=== PATIENT | female | born 1945 | race Caucasian/White ===

== ENCOUNTER 2019-01-18 08:42 | Day surgery (SDC) | payer MEDICARE, BC ==
[~2019-01-18 08:42] MED LIST: CEFAZOLIN 2 Gram 2 GM/50 ML BAG IVPB ONE; CELECOXIB 100 MG CAPSULE PO ONE; FAMOTIDINE 20MG TABLET PO ONE; MECLIZINE 25 MG TABLET PO ONE; METOCLOPRAMIDE 10 MG TABLET PO ONE; VANCOMYCIN 1GM/200ML PREMIX 1 GM/200 ML PIGGYBACK IVPB ONE
[2019-01-18] MEDS ORDERED: PROPOFOL 10 MG/ML VIAL IV ONE (08:43)
[2019-01-18] MEDS ORDERED: SEVOFLURANE 250 ML INH ONE (08:43)
[2019-01-18] MEDS ORDERED: ONDANSETRON HCL IV 4 MG/2 ML VIAL IVP ONE (08:43)
[2019-01-18] MEDS ORDERED: MIDAZOLAM HCL 2MG/2ML VIAL IV ONE (08:43)
[2019-01-18] MEDS ORDERED: ROPIVACAINE HCL (NAROPIN) /PF 5MG/ML 20ML VIAL IV ONE (08:43)
[2019-01-18] MEDS ORDERED: LIDOCAINE 2% MDV (20MG/ML) 20ML VIAL IV ONE (08:43)
[2019-01-18] MEDS ORDERED: EPHEDRINE SULFATE 50 MG/ML ML IV ONE (08:43)
[2019-01-18] MEDS ORDERED: KETOROLAC 30 MG/ML VIAL IVP ONE (08:43)
[2019-01-18] MEDS ORDERED: DEXAMETHASONE 4 MG/ML 1ML VIAL IVP ONE (08:43)
[2019-01-18] MEDS ORDERED: HYDROMORPHONE HCL 2 MG/ML VIAL IV ONE (08:43)
[2019-01-18] MEDS ORDERED: FENTANYL PF 100MCG/2ML VIAL IV ONE (08:43)
[2019-01-18 09:34] LABS: ABO GROUP O; ANTIBODY SCREEN NEGATIVE (NEGATIVE); RH TYPE POSITIVE
[2019-01-18] MEDS ORDERED: RINGERS SOLUTION,LACTATED 1,000 ML IV ONE ×2 (09:57→11:49)
[2019-01-18] MEDS ORDERED: BUPIVACAINE 0.5% W/EPI MPF 30 ML VIAL IU ONE (11:48)
[2019-01-18] MEDS ORDERED: TRANEXAMIC ACID 1,000 MG/10 ML ML IU ONE (11:49)
[2019-01-18] MEDS ORDERED: TRANEXAMIC ACID 1,000 MG/10 ML ML IV ONE (11:49)
[2019-01-18] MEDS ORDERED: ZOLPIDEM TARTRATE 5 MG TABLET PO PRN (12:56)
[2019-01-18] MEDS ORDERED: ACETAMINOPHEN W/ CODEINE 300MG/60MG TABLET PO PRN (12:56)
[2019-01-18] MEDS ORDERED: HYDROCODONE/APAP 10/325 TABLET PO PRN ×2 (12:56)
[2019-01-18] MEDS ORDERED: KETOROLAC 30 MG/ML VIAL IVP PRN (12:56)
[2019-01-18] MEDS ORDERED: BISACODYL 10 MG SUPP RC PRN (12:56)
[2019-01-18] MEDS ORDERED: MAGNESIUM HYDROXIDE 30 ML UDC PO PRN (12:56)
[2019-01-18] MEDS ORDERED: AL HYDROX/MAG HYDROX 30ML UD PO PRN (12:56)
[2019-01-18] MEDS ORDERED: NALOXONE 0.4 MG/1 ML VIAL IVP PRN (12:56)
[2019-01-18] MEDS ORDERED: TRAMADOL HCL 50 MG TABLET PO PRN (12:56)
[2019-01-18] MEDS ORDERED: ACETAMINOPHEN 325 MG TAB PO PRN (12:56)
[2019-01-18] MEDS ORDERED: DIPHENHYDRAMINE HCL 25 MG CAPSULE PO PRN (12:56)
[2019-01-18] MEDS ORDERED: ONDANSETRON HCL IV 4 MG/2 ML VIAL IVP PRN (12:56)
[2019-01-18] MEDS ORDERED: HYDROMORPHONE HCL 2 MG/ML VIAL IM PRN (12:56)
[2019-01-18] MEDS ORDERED: FAMOTIDINE 20MG TABLET PO PRN (13:52)
[2019-01-18] MEDS ORDERED: LOPERAMIDE 2 MG CAPSULE PO PRN (13:53)
--- NOTE | 2019-01-18 16:26 | Rehab Evaluation ---
Patient Information - Patient Information Diagnosis: R knee DJD Ordered Treatment: PT Evaluate and Treat Status: Initial Evaluation Surgery: Yes (R TKA) Date of Surgery: 01/18/19 Past Medical/Surgical Hx: PAST MEDICAL/SURGICAL HISTORY Surgery to Affected Area? No Recent Surgery? Past Surgical History JONE 2002 HYST CYSTOCELE RECTOCELE BILAT BREAST BX'S TARSAL TUNNEL LEFT ANKLE C SCOPES PMH - Respiratory Hx Respiratory Disorders Yes Hx Asthma Yes: POSSIBLY Hx Bronchitis Yes: HX OF Hx Pneumonia Yes: HX OF PMH - Cardiovascular Hx Cardiovascular Disorders Yes Hx Vascular Disease Yes: CAROTIDS 30 PERCENT BLOCKAGE Exercise Tolerance Fair Hx of Migraines Yes: CONTROLLED WITH MEDS PMH - Neuro Hx Neurological Disorders Yes Hx Dizziness Yes: VERTIGO ON DAILY ANTIVERT PMH - GI Hx Gastrointestinal Disorders Yes Hx Gastroesophageal Reflux Yes: CONTROLLED WITH MEDS Hx Hiatal Hernia Yes Hx Irritable Bowel Yes Hx Ulcer Yes: HX OF Comment: DIARRHEA AT TIMES PMH - Hx Genitourinary Disorders Yes Hx Bladder Problem Yes: INCONTINENCE WEARS PADS DURING THE DAY AND DEPENDS AT NIGHT PMH - Endocrine Hx Endocrine Disorders Yes Hx Thyroid Disease Yes: POSSIBLY ON NO MEDS PMH - Musculoskeletal Hx Musculoskeletal Disorders Yes Hx Arthritis Yes: KNEES AND SPINE Hx Osteoporosis Yes PMH - Psych Hx Psychiatric Problems No PMH - Hematology/Oncology Hx Hematology/Oncology Yes Disorders Hx Bruising Yes: BRUISES EASILY Premorbid Status: Detail (The patient was independent with all mobility prior to surgery.) Social History: Detail (The patient lives with spouse in a two story house with 6 steps at the enterance and one handrail. The patient's bed room and bath room are on the main floor. The bathroom is equipped with the following: walk in shower, hand held shower, standard height toilet with a riser seat with railings . The patient's family is to acquire a walker and the patient has a single point cane.) Precautions: [place], Fall, Other (WBAT on the R LE.) - Time With Patient Total Time Spent With Patient (Min): 30 Treatment Procedures: Detail (Initial Evaluation, gait training) Subjective Information - Subjective Information Per Patient (The patient complained of lightheadness when standing which she reported is usual for her. The patient also complained of nausea after PT session. Nursing staff was notified. The patient complained of posterior, medial R knee pain but did not rate her pain using the 0-10 pain scale.) Objective Data - Mental Status Patient Orientation: Oriented x3 - Visual Perception Appears within normal limits for therapeutic activities - ROM Not within normal limits (The patient's R knee AROM is limited as to be expected following sugery. All other LE AROM is WNL,) - Strength/Tone Not within normal limits (The patient's LE strength was not tested s/p surgery however was functional.) - Bed Mobility Independent (The patient was independent with supine to and from sit transfer and scooting up in bed.) - Transfers Independent (The patient is independent with sit to and from stand transfer.) - Balance Balance Sitting: Good Balance Standing: Good - Gait Detail (The patient ambulated with front wheeled walker WBAT on the R LE with supervision for safety only a distance of 80 feet x 1.) Therapy Assessment - Therapy Assessment Detail (The patient was independent with bed mobility, transfers and required supervision for safety only with ambulation. Anticipate the patient will complete PT goals in one to two PT sessions.) Problem List - Problem List Physical Therapy Problem List: Detail (Decreased R knee AROM and decreased R LE strength) Goals - Goals Physical Therapy Goals: 1) The patient will be independent with TKA HEP. 2) The patient will ambulate on stairs using proper technique with supervision for safety. 3) The patient will ambulate household distance with appropriate assistive device independently Prognosis - Prognosis Good Plan - Plan Physical Therapy Plan: PT 1-2 sessions for gait training on levels and stairs and instruction in HEP.
[2019-01-18] MEDS: ACETAMINOPHEN W/ CODEINE 300MG/60MG TABLET PO PRN (16:40)
[2019-01-18] MEDS ORDERED: RIVAROXABAN 10 MG TABLET PO SCH (19:00)
[2019-01-18] MEDS: POTASSIUM CHLORIDE/D5-0.9%NACL 20 MEQ/1,000 ML BAG IV SCH (19:49)
[2019-01-18] MEDS: CEFAZOLIN 2 Gram 2 GM/50 ML BAG IVPB SCH (19:49)
[2019-01-18] MEDS: DOCUSATE SODIUM 100 MG CAPSULE PO SCH (21:24)
[2019-01-18] MEDS: MECLIZINE 25 MG TABLET PO SCH (21:25)
[2019-01-19] MEDS: CEFAZOLIN 2 Gram 2 GM/50 ML BAG IVPB SCH ×2 (03:32→11:55)
[2019-01-19] MEDS: POTASSIUM CHLORIDE/D5-0.9%NACL 20 MEQ/1,000 ML BAG IV SCH ×2 (03:36→06:27)
[2019-01-19 06:40] LABS: HEMATOCRIT 36.9 % (35.0-47.0); HEMOGLOBIN 11.6 gm/dl (11.6-16.0)
[2019-01-19 06:51] LABS: BLOOD UREA NITROGEN 11 mg/dL (8-23); CREATININE 0.5 mg/dL (0.5-0.9); EST GLOMERULAR FILTRATION RATE > 60 mL/min; GLUCOSE,RANDOM 141 mg/dL (74-109)
[2019-01-19] MEDS: ACETAMINOPHEN W/ CODEINE 300MG/60MG TABLET PO PRN ×3 (07:12→14:07)
--- NOTE | 2019-01-19 08:00 | Operative Note ---
DATE OF SURGERY: 01/18/2019 PREOPERATIVE DIAGNOSIS: Profound end-stage arthritis of the right knee. POSTOPERATIVE DIAGNOSIS: Profound end-stage arthritis of the right knee. OPERATION: Cemented right total knee arthroplasty using Hale and Nephew components with a size 5 cobalt chrome Legion femoral component, a size 4 stemmed tibia baseplate, a 9 mm lipped tibial insert, and a 32 mm all-plastic patella. STAFF SURGEON: Kenneth Saldivar MD ANESTHESIA: Spinal. PREPARATION: Chloraprep. INDIVIDUAL CONSIDERATIONS: This lady was morbidly obese with a body mass index approaching 50. This made exposure and closure much more difficult. PROCEDURE: The patient was taken to the operating room, placed supine on the operating room table. She had a successful induction of a spinal anesthetic. The right lower extremity was prepped and draped in the usual fashion. The patient had a midline approach to the knee. The limb was elevated and tourniquet was inflated to 300 mmHg. Sharp dissection carried down through skin and subcutaneous tissue. Small veins were coagulated with a Bovie. A medial arthrotomy was performed. The patella was everted and the knee was flexed. The patient had exposed bone in the medial and patellofemoral compartments with bone loss medially. Fat pad was resected, ACL was sacrificed, and provisional anterior meniscectomies were performed. The capsule was released from the medial proximal tibia. The initial femoral ecological modeler hole was then made freehand. The intramedullary femoral cutting jig was placed. It was cut in 7.0 degrees of valgus and adjusted for rotation and secured with pins for a 10 mm resection. The initial transverse cut was then made. The skin guide was placed in 3 degrees of external rotation. The ecological modeler holes were impacted. It was found that a size 5 would be appropriate. The anterior and posterior cuts followed by chamfer cuts were made. Osteophytes removed, and a size 5 trial was placed and found to fit well. The tibia was brought forward, and the remainder of the meniscal remnants removed with a Bovie. The extraarticular tibial cutting jig was placed. It was cut in neutral with a 3-degree AP slope. It was set for a 9 mm resection keyed off the high lateral side and secured with pins. When cutting the tibia, care was taken to preserve the PCL insertion on the tibia. After removing large medial osteophytes, I could fit a size 4. It was adjusted for rotation and secured with pins. With a 9 mm trial and femoral trial, there was excellent motion and stability. Ligamentous balance and rotation alignment were thought to be normal. Femoral ecological modeler holes were impacted and tri-flange tibial keel stamp was impacted, and these trial components were removed. The tourniquet was let down briefly to get bleeders posteriorly and then placed back up again. The patient had a thick patella and roughly 9 mm of bone was removed and it was cut freehand. After removing osteophytes, I could fit a size 32, and the 3 ecological modeler holes were drilled. The knee was then thoroughly irrigated out with pulsatile Betadine and saline to remove any visual or palpable debris. Bony surfaces were dried with a CarboJet. A size 4 stemmed tibia baseplate was cemented into place followed by impaction of the 9 mm lipped tibial insert followed by cementing in the size 5 cobalt chrome femur followed by cementing in the 32 mm patella. The implant surfaces were compressed. After the cement had set, there was excellent motion and stability. Ligamentous balance and rotation alignment were thought to be normal. I had to do a very limited lateral release to facilitate patellofemoral tracking. Tourniquet was let down. Hemostasis was obtained with a Bovie. Final irrigation. The skin, subcu, and periosteum were infiltrated with 30 mL of 0.5% Marcaine with epinephrine. The capsule was then closed with a running #2 quill. The subcu was closed in layers with running 0 quill, skin was closed with huy. The patient did receive 1 g of tranexamic acid IV prior. I mixed 1 g of tranexamic acid with 30 mL of saline and injected into the knee through a sterile 18-gauge needle, and a sterile bulky compressive DAKOTA-type dressing was applied. The patient tolerated the procedure well. Needle and sponge counts were correct. Estimated blood loss was minimal, and she was taken back to recovery in good condition. There were no complications. TANNER
[2019-01-19] MEDS: MECLIZINE 25 MG TABLET PO SCH (09:24)
[2019-01-19] MEDS: DOCUSATE SODIUM 100 MG CAPSULE PO SCH (09:26)
[2019-01-19] MEDS ORDERED: PROPRANOLOL 80 MG PO SCH (10:00)
[2019-01-19] MEDS ORDERED: CLOPIDOGREL 75MG TABLET PO SCH (10:00)
[2019-01-19] MEDS ORDERED: VESICARE 10MG PO SCH (10:00)
[2019-01-19] MEDS ORDERED: FERROUS SULFATE 325 MG TAB PO SCH (10:00)
--- NOTE | 2019-01-19 10:03 | Rehab Evaluation ---
Patient Information - Patient Information Diagnosis: R knee DJD Ordered Treatment: OT Evaluate and Treat Status: Initial Evaluation Surgery: Yes (R TKA) Date of Surgery: 01/18/19 Past Medical/Surgical Hx: PAST MEDICAL/SURGICAL HISTORY Surgery to Affected Area? No Recent Surgery? Past Surgical History JONE 2002 HYST CYSTOCELE RECTOCELE BILAT BREAST BX'S TARSAL TUNNEL LEFT ANKLE C SCOPES PMH - Respiratory Hx Respiratory Disorders Yes Hx Asthma Yes: POSSIBLY Hx Bronchitis Yes: HX OF Hx Pneumonia Yes: HX OF PMH - Cardiovascular Hx Cardiovascular Disorders Yes Hx Vascular Disease Yes: CAROTIDS 30 PERCENT BLOCKAGE Exercise Tolerance Fair Hx of Migraines Yes: CONTROLLED WITH MEDS PMH - Neuro Hx Neurological Disorders Yes Hx Dizziness Yes: VERTIGO ON DAILY ANTIVERT PMH - GI Hx Gastrointestinal Disorders Yes Hx Gastroesophageal Reflux Yes: CONTROLLED WITH MEDS Hx Hiatal Hernia Yes Hx Irritable Bowel Yes Hx Ulcer Yes: HX OF Comment: DIARRHEA AT TIMES PMH - Hx Genitourinary Disorders Yes Hx Bladder Problem Yes: INCONTINENCE WEARS PADS DURING THE DAY AND DEPENDS AT NIGHT PMH - Endocrine Hx Endocrine Disorders Yes Hx Thyroid Disease Yes: POSSIBLY ON NO MEDS PMH - Musculoskeletal Hx Musculoskeletal Disorders Yes Hx Arthritis Yes: KNEES AND SPINE Hx Osteoporosis Yes PMH - Psych Hx Psychiatric Problems No PMH - Hematology/Oncology Hx Hematology/Oncology Yes Disorders Hx Bruising Yes: BRUISES EASILY Premorbid Status: Detail (The patient was independent with all mobility and meal prep tasks prior to surgery. She and her spouse share home mgmt and laundry tasks.) Social History: Detail (The patient lives with spouse in a two story house with 6 steps at the entrance and one handrail. The patient's bed room and bath room are on the main floor. The bathroom is equipped with the following: walk in shower, hand held shower and a standard height toilet with a riser seat with railings. The patient's family is to acquire a walker and the patient has a single point cane.) Precautions: [place], Fall, Other (WBAT on the R LE.) - Time With Patient Total Time Spent With Patient (Min): 40 Treatment Procedures: Detail (OT eval low complexity) Subjective Information - Subjective Information Per Patient Objective Data - Pain Pain Present: Yes (06/18) - Mental Status Patient Orientation: Oriented x3 - Visual Perception Appears within normal limits for therapeutic activities - ROM Within normal limits (Surjit UE AROM WNL) - Strength/Tone Within normal limits (Surjit UE strength WNL) - Coordination Appears within normal limits for therapeutic activities - Transfers Independent (Ind with sit to stand) - Balance Balance Sitting: Good Balance Standing: Good - Sensation Intact - Gait Detail (Pt ambulating in room with 2 wheeled walker and supervision) - ADL's/IADL's Detail (Pt educated and able to demonstrate learning of modified LE dressing techniques including doffing slipper socks and donning lenin sock (with assist) shorts, socks and slip on shoes. Reviewed kitchen and shower safety and modifications, pt verbalized understanding.) Therapy Assessment - Therapy Assessment Detail (Pt is Ind with modified LE dressing techniques.) Problem List - Problem List Physical Therapy Problem List: Detail (Decreased R knee AROM and decreased R LE strength) Occupational Therapy Problem List: Detail (No current IP OT problems identified.) Goals - Goals Physical Therapy Goals: 1) The patient will be independent with TKA HEP. 2) The patient will ambulate on stairs using proper technique with supervision for safety. 3) The patient will ambulate household distance with appropriate assistive device independently Occupational Therapy Goals: No current IP OT goals identified. Prognosis - Prognosis Good Plan - Plan Physical Therapy Plan: PT 1-2 sessions for gait training on levels and stairs and instruction in HEP. Occupational Therapy Plan: Pt is discharged from OT. Thank you for this referral.
--- NOTE | 2019-01-19 10:32 | Physical Therapy Tx Note ---
Physical Therapy Tx Note - Treatment Note Physical Therapy Tx Note: Detail (Patient reported that she had no pain this mo rning. She was independent in sit to stand from the chair. In the hallway she ambulated 67 feet to the stairwell using a front-wheeled walker independently, and WBAT on the R LE. The patient was able to complete stair training over 3 stairs with good technique using a straight cane and a handrail. She ambulated 67 back to her room independently using a front-wheeled walker and WBAT on the R LE. She used a strap to move her R LE into bed to practice because she said her bed is higher at home and she wanted to be shown a way to be able to move her leg into bed independently. In bed, her HEP exercises were reviewed with her, and she demonstrated good understanding and technique of all exercises. The patient was left in bed with her call light and bedside table within reach.) Physical Therapy Problem List: Detail (Decreased R knee AROM and decreased R LE strength) Physical Therapy Goals: 1) The patient will be independent with TKA HEP GOAL MET. 2) The patient will ambulate on stairs using proper technique with supervision for safety GOAL MET. 3) The patient will ambulate household distance with appropriate assistive device independently GOAL MET Physical Therapy Plan: The patient has met all of her inpatient therapy goals at this time.
== END 2019-01-19 15:15 | disposition home health service (06) ==
LOC: SUR 08:42 → MEDSURG 13:39 → SUR 01-19 15:15
PROVIDERS: ATTEND Orthopaedic Surgery
DX: M17.11 Unilateral primary osteoarthritis, right knee (principal); E66.9 Obesity, unspecified; Z68.41 Body mass index [BMI] 40.0-44.9, adult; Z79.01 Long term (current) use of anticoagulants; I65.29 Occlusion and stenosis of unspecified carotid artery; R42 Dizziness and giddiness
CPT/HCPCS: 27447; 01402; 64447; 85018; 85014; 80048; 86900; 86901; 86850; 76942; C1776 ×2; J3490; J1885; J2405; J3010; J1170; J0690 ×2; J2795; J3370; J3480; J7120

== ENCOUNTER 2019-03-15 12:12 | Day surgery (SDC) | payer MEDICARE, BC ==
[~2019-03-15 12:12] MED LIST changes: -MECLIZINE 25 MG TABLET PO ONE
[2019-03-15] MEDS ORDERED: EPHEDRINE SULFATE 50 MG/ML ML IV ONE (12:13)
[2019-03-15] MEDS ORDERED: DEXAMETHASONE 4 MG/ML 1ML VIAL IVP ONE (12:13)
[2019-03-15] MEDS ORDERED: PROPOFOL 10 MG/ML VIAL IV ONE (12:13)
[2019-03-15] MEDS ORDERED: LIDOCAINE 2% MDV (20MG/ML) 20ML VIAL IV ONE (12:13)
[2019-03-15] MEDS ORDERED: KETOROLAC 30 MG/ML VIAL IVP ONE (12:13)
[2019-03-15] MEDS ORDERED: ROPIVACAINE HCL (NAROPIN) /PF 5MG/ML 20ML VIAL IV ONE (12:13)
[2019-03-15] MEDS ORDERED: FENTANYL PF 100MCG/2ML VIAL IV ONE (12:13)
[2019-03-15] MEDS ORDERED: SEVOFLURANE 250 ML INH ONE (12:13)
[2019-03-15] MEDS ORDERED: ONDANSETRON HCL IV 4 MG/2 ML VIAL IVP ONE (12:13)
[2019-03-15] MEDS ORDERED: MIDAZOLAM HCL 2MG/2ML VIAL IV ONE (12:13)
[2019-03-15] MEDS ORDERED: HYDROMORPHONE HCL 2 MG/ML VIAL IV ONE (12:13)
[2019-03-15] MEDS ORDERED: RINGERS SOLUTION,LACTATED 1,000 ML IV ONE ×3 (13:10→15:46)
[2019-03-15 13:13] LABS: ABO GROUP O; ANTIBODY SCREEN NEGATIVE (NEGATIVE); RH TYPE POSITIVE
[2019-03-15] MEDS ORDERED: TRANEXAMIC ACID 1,000 MG/10 ML ML IU ONE (14:51)
[2019-03-15] MEDS ORDERED: BUPIVACAINE 0.5% W/EPI MPF 30 ML VIAL SQ ONE (14:51)
[2019-03-15] MEDS ORDERED: TRANEXAMIC ACID 1,000 MG/10 ML ML IV ONE (14:51)
[2019-03-15] MEDS ORDERED: ACETAMINOPHEN 325 MG TAB PO PRN (15:43)
[2019-03-15] MEDS ORDERED: HYDROCODONE/APAP 10/325 TABLET PO PRN ×2 (15:43)
[2019-03-15] MEDS ORDERED: AL HYDROX/MAG HYDROX 30ML UD PO PRN (15:43)
[2019-03-15] MEDS ORDERED: NALOXONE 0.4 MG/1 ML VIAL IVP PRN (15:43)
[2019-03-15] MEDS ORDERED: BISACODYL 10 MG SUPP RC PRN (15:43)
[2019-03-15] MEDS ORDERED: MAGNESIUM HYDROXIDE 30 ML UDC PO PRN (15:43)
[2019-03-15] MEDS ORDERED: ZOLPIDEM TARTRATE 5 MG TABLET PO PRN (15:43)
[2019-03-15] MEDS ORDERED: DIPHENHYDRAMINE HCL 25 MG CAPSULE PO PRN (15:43)
[2019-03-15] MEDS ORDERED: KETOROLAC 30 MG/ML VIAL IVP PRN (15:43)
[2019-03-15] MEDS ORDERED: ONDANSETRON HCL IV 4 MG/2 ML VIAL IVP PRN (15:43)
[2019-03-15] MEDS ORDERED: HYDROMORPHONE HCL 2 MG/ML VIAL IM PRN (15:43)
[2019-03-15] MEDS ORDERED: FAMOTIDINE 20MG TABLET PO PRN (16:10)
[2019-03-15] MEDS ORDERED: LOPERAMIDE 2 MG CAPSULE PO PRN (16:11)
[2019-03-15] MEDS: CEFAZOLIN 2 Gram 2 GM/50 ML BAG IVPB SCH (22:30)
[2019-03-15] MEDS: MECLIZINE 25 MG TABLET PO SCH (23:30)
[2019-03-15] MEDS: DOCUSATE SODIUM 100 MG CAPSULE PO SCH ×2 (23:30)
[2019-03-15] MEDS: POTASSIUM CHLORIDE/D5-0.9%NACL 20 MEQ/1,000 ML BAG IV SCH (23:31)
[2019-03-16] MEDS: HYDROCODONE/APAP 5/325MG TABLET PO PRN ×2 (03:07→12:09)
[2019-03-16 06:33] LABS: HEMATOCRIT 37.7 % (35.0-47.0); HEMOGLOBIN 11.6 gm/dl (11.6-16.0)
[2019-03-16] MEDS: CEFAZOLIN 2 Gram 2 GM/50 ML BAG IVPB SCH ×2 (06:36→13:06)
[2019-03-16 06:48] LABS: BLOOD UREA NITROGEN 10 mg/dL (8-23); CREATININE 0.5 mg/dL (0.5-0.9); EST GLOMERULAR FILTRATION RATE > 60 mL/min; GLUCOSE,RANDOM 179 mg/dL (74-109)
--- NOTE | 2019-03-16 09:20 | Operative Note ---
DATE OF SURGERY: 03/15/2019 PREOPERATIVE DIAGNOSIS: End-stage arthrosis of the left knee. POSTOPERATIVE DIAGNOSIS: End-stage arthrosis of the left knee. OPERATION: Cemented left total knee arthroplasty using Hale and Nephew Legion components with a size 5 cobalt chrome femur, a size 4 stemmed tibia baseplate, a 9 mm lipped tibial insert, and a 35 mm all-plastic patella. STAFF SURGEON: Kenneth Saldivar MD ANESTHESIA: Spinal. PREPARATION: Chloraprep. INDIVIDUAL CONSIDERATIONS: This lady was morbidly obese with a body mass index approaching 50%. This made exposure and closure and manipulation during the procedure more difficult. PROCEDURE: The patient was taken to the operating room, placed supine on the operating room table. She had a successful induction of a spinal anesthetic. The left lower extremity was prepped and draped in the usual fashion. The limb was elevated and tourniquet was inflated to 300 mmHg. Sharp dissection carried down through skin and subcutaneous tissue. Small veins were coagulated with a Bovie. A medial arthrotomy was performed. The patella was everted and the knee was flexed. The fat pad was resected, ACL was sacrificed, and provisional anterior meniscectomies were performed. The capsule was released from the medial proximal tibia. The patient had exposed bone in the medial patellofemoral compartment with bone loss medially. The initial femoral harbor pilot hole was then made freehand. The intramedullary femoral cutting jig was placed. It was cut in 7.0 degrees of valgus and adjusted for rotation and secured with pins for a 10 mm resection. The initial transverse cut was then made. The skin guide was placed in the anterior and posterior harbor pilot holes. It was cut in 3 degrees of external rotation. It was found that a size 5 would be appropriate. The anterior and posterior cuts followed by chamfer cuts were made. Osteophytes removed, and a size 5 trial was placed and found to fit well. The tibia was brought forward, and the remainder of the meniscal remnants removed with a Bovie. The extraarticular tibial cutting jig was placed. It was cut in neutral with a 3-degree AP slope. It was set for a 9 mm resection keyed off the high lateral side and secured with pins. When cutting the tibia, care was taken to preserve the PCL insertion on the tibia. Large medial osteophytes were removed, I could fit a size 4 baseplate. It was adjusted for rotation and secured with pins. With a 9 trial and the size 5 femoral trial, there was excellent motion and stability. Ligamentous balance and rotation alignment were thought to be normal. Femoral harbor pilot holes were impacted and tri-flange tibial stamp was impacted, and these trial components were removed. The patient had a thick patella and roughly 9 mm of bone was removed freehand with an oscillating saw. I could easily fit a 35 patella, and the 3 harbor pilot holes were drilled. The tourniquet was let down briefly to get bleeders posteriorly and then placed back up again. Then thorough irrigation with pulsatile Betadine and saline to remove any visual or palpable debris. Bony surfaces were dried with a CarboJet. A size 4 stemmed tibia baseplate was cemented into place followed by impaction of the 9 mm lipped tibial insert followed by cementing in the size 5 cobalt chrome femur followed by cementing in the 35 mm patella. The implant surfaces were compressed, excess cement was removed. After the cement had set, there was excellent motion and stability. Ligamentous balance, rotation alignment, and patellofemoral tracking were normal. No lateral release was required. Again thorough irrigation. Tourniquet was again let down to get final hemostasis. Then 30 mL of 0.5% Marcaine with epinephrine was infiltrated in the periosteum, skin, and subcu. The capsule was then closed with a running #2 quill, subcu was closed in layers with running 0 quill, skin was closed with huy. Then 1 g of tranexamic acid was mixed with 30 mL of saline and injected into the knee through a sterile 18-gauge needle, and a sterile bulky compressive DAKOTA-type dressing was applied. The patient tolerated the procedure well. Needle and sponge counts were correct. Estimated blood loss was minimal, and she was taken back to recovery in good condition. There were no complications. TANNER
[2019-03-16] MEDS ORDERED: FERROUS SULFATE 325 MG TAB PO SCH (10:00)
[2019-03-16] MEDS ORDERED: ASCORBIC ACID 500 MG TAB PO SCH (10:00)
[2019-03-16] MEDS ORDERED: PROPRANOLOL 80 MG PO SCH (10:00)
[2019-03-16] MEDS ORDERED: MAGNESIUM OXIDE 400 MG TABLET PO SCH (10:00)
[2019-03-16] MEDS ORDERED: RIVAROXABAN 10 MG TABLET PO SCH (10:00)
[2019-03-16] MEDS ORDERED: CLOPIDOGREL 75MG TABLET PO SCH (10:00)
[2019-03-16] MEDS: DOCUSATE SODIUM 100 MG CAPSULE PO SCH (10:07)
[2019-03-16] MEDS: MECLIZINE 25 MG TABLET PO SCH (10:08)
[2019-03-16] MEDS: POTASSIUM CHLORIDE/D5-0.9%NACL 20 MEQ/1,000 ML BAG IV SCH ×2 (10:13→10:14)
--- NOTE | 2019-03-16 10:52 | Rehab Evaluation ---
Patient Information - Patient Information Diagnosis: L knee DJD Ordered Treatment: PT Evaluate and Treat Status: Initial Evaluation Surgery: Yes (L TKA) Date of Surgery: 03/15/19 Past Medical/Surgical Hx: PAST MEDICAL/SURGICAL HISTORY Past Surgical History RTKA 01-18-19 JONE 2002 HYST CYSTOCELE RECTOCELE BILAT BREAST BX'S TARSAL TUNNEL LEFT ANKLE C SCOPES PMH - Respiratory Hx Respiratory Disorders Yes Hx Asthma Yes: POSSIBLY Hx Bronchitis Yes: HX OF Hx Pneumonia Yes: HX OF PMH - Cardiovascular Hx Cardiovascular Disorders Yes Hx Edema Yes Hx Palpitations Yes: R/T CODEINE AND TRAMADOL Hx Vascular Disease Yes: CAROTIDS 30 PERCENT BLOCKAGE Exercise Tolerance Fair Hx of Migraines Yes: CONTROLLED WITH MEDS PMH - Neuro Hx Neurological Disorders Yes Hx Dizziness Yes: VERTIGO ON DAILY ANTIVERT PMH - GI Hx Gastrointestinal Disorders Yes Hx Gastroesophageal Reflux Yes: CONTROLLED WITH MEDS Hx Hiatal Hernia Yes Hx Irritable Bowel Yes Hx Ulcer Yes: HX OF Comment: DIARRHEA AT TIMES PMH - Hx Genitourinary Disorders Yes Hx Bladder Problem Yes: INCONTINENCE WEARS PADS DURING THE DAY AND DEPENDS AT NIGHT PMH - Endocrine Hx Endocrine Disorders Yes Hx Thyroid Disease Yes: POSSIBLY ON NO MEDS PMH - Musculoskeletal Hx Musculoskeletal Disorders Yes Hx Arthritis Yes: LEFT KNEE AND SPINE Hx Osteoporosis Yes PMH - Psych Hx Psychiatric Problems No PMH - Hematology/Oncology Hx Hematology/Oncology Yes Disorders Hx Bruising Yes: BRUISES EASILY Premorbid Status: Detail (The patient was independent with mobility prior to surgery.) Social History: Detail (The patient lives with spouse in a two story house with 6-7 steps at the enterance with one hand rail. Patient will be staying on the main floor after surgery. The bathroom is equipped with a walk in shower, hand held shower, standard height toilet with riser seat . Grab bars are present by toilet but not in tub. The patient has a walker with wheels and standard cane. The pt's also has stools that her made to get into car and her bed.) Precautions: [place], Fall, Other (WBAT on L LE.) - Time With Patient Total Time Spent With Patient (Min): 30 Treatment Procedures: Detail (Initial Evaluation, low complexity,gait training.) Subjective Information - Subjective Information Per Patient (The patient had no complaints of pain.) Objective Data - Mental Status Patient Orientation: Oriented x3 - Visual Perception Appears within normal limits for therapeutic activities - ROM Not within normal limits (The patient's L knee AROM is limited s/p surgery. All other LE AROM is WNL.) - Strength/Tone Other (The patient's LE strength was not tested using resistance s/p surgery however is within functional limits.) - Bed Mobility Independent (The patient was independent with supine to and from sit transfer.) - Transfers Independent (The patient was independent with sit to and from stand transfer.) - Balance Balance Sitting: Good Balance Standing: Good - Sensation Intact - Gait Detail (The patient ambulated independently with front wheeled walker a distance of 140 feet x 1 WBAT on L LE . The patient ambulated on stairs with use of one railing and cane using proper technique with supervision for safety only.) Therapy Assessment - Therapy Assessment Detail (The patient is independent with bed mobility, transfers and ambulation on levels and stairs. The patient is discharged from inpt. PT .) Patient Education - Patient Education Teaching Topic: Exercise/Activity (The patient is independent with TKA HEP including: seated heel slides, quad sets, ankle pumps, hamstring sets, SLR, and gluteal sets.) Response: Return Demonstration Teaching Method: Demonstration, Handout Teaching Recipient: Patient Barriers To Learning: None Problem List - Problem List Physical Therapy Problem List: Detail (Decreased L knee AROM and L LE strength.) Goals - Goals Physical Therapy Goals: The patient has completed all inpt. PT goals. Plan - Plan Physical Therapy Plan: The pt. is discharged from inpt. PT and is to continue with Home PT.
--- NOTE | 2019-03-16 11:29 | Rehab Evaluation ---
Patient Information - Patient Information Diagnosis: L knee DJD Ordered Treatment: OT Evaluate and Treat Status: Initial Evaluation Surgery: Yes (L TKA) Date of Surgery: 03/15/19 Past Med/[employer] Hx Detail: Detail (L TKA in January) Past Medical/Surgical Hx: PAST MEDICAL/SURGICAL HISTORY Past Surgical History RTKA 01-18-19 JONE 2002 HYST CYSTOCELE RECTOCELE BILAT BREAST BX'S TARSAL TUNNEL LEFT ANKLE C SCOPES PMH - Respiratory Hx Respiratory Disorders Yes Hx Asthma Yes: POSSIBLY Hx Bronchitis Yes: HX OF Hx Pneumonia Yes: HX OF PMH - Cardiovascular Hx Cardiovascular Disorders Yes Hx Edema Yes Hx Palpitations Yes: R/T CODEINE AND TRAMADOL Hx Vascular Disease Yes: CAROTIDS 30 PERCENT BLOCKAGE Exercise Tolerance Fair Hx of Migraines Yes: CONTROLLED WITH MEDS PMH - Neuro Hx Neurological Disorders Yes Hx Dizziness Yes: VERTIGO ON DAILY ANTIVERT PMH - GI Hx Gastrointestinal Disorders Yes Hx Gastroesophageal Reflux Yes: CONTROLLED WITH MEDS Hx Hiatal Hernia Yes Hx Irritable Bowel Yes Hx Ulcer Yes: HX OF Comment: DIARRHEA AT TIMES PMH - Hx Genitourinary Disorders Yes Hx Bladder Problem Yes: INCONTINENCE WEARS PADS DURING THE DAY AND DEPENDS AT NIGHT PMH - Endocrine Hx Endocrine Disorders Yes Hx Thyroid Disease Yes: POSSIBLY ON NO MEDS PMH - Musculoskeletal Hx Musculoskeletal Disorders Yes Hx Arthritis Yes: LEFT KNEE AND SPINE Hx Osteoporosis Yes PMH - Psych Hx Psychiatric Problems No PMH - Hematology/Oncology Hx Hematology/Oncology Yes Disorders Hx Bruising Yes: BRUISES EASILY Premorbid Status: Detail (The patient was independent with ADLs and functional mobility prior to surgery.) Social History: Detail (The patient lives with spouse in a two story house with 6-7 steps at the enterance with a hand rail on the right when walking up. Patient will be staying on the main floor after surgery. The Pt primarily sponge bathes, though her bathroom is equipped with a walk in shower with a small lip, hand held shower, standard height toilet with riser seat. Grab bars are present by toilet but not in tub. The patient has a front wheeled walker and standard cane. The Pt also has a step that her made for her to get into her car and her bed.) Precautions: Hyder, Fall, Other (WBAT on L LE.) - Time With Patient Total Time Spent With Patient (Min): 45 (1 eval low complexity) Subjective Information - Subjective Information Per Patient (I'll be ready to go home once my doctor says it's okay!) Objective Data - Pain Pain Present: No - Mental Status Patient Orientation: Oriented x3 - Visual Perception Appears within normal limits for therapeutic activities - ROM Within normal limits - Strength/Tone Within normal limits - Coordination Appears within normal limits for therapeutic activities - Bed Mobility Independent - Transfers Independent (sit to/from stand from EOB to walker, good balance and safety awareness) - Balance Balance Sitting: Good Balance Standing: Good, Fair - Sensation Intact - Gait Detail (Fxl mobility within bedroom w/ FWW, good balance and safety awareness, minimal cues for safe walker placement/technique w/ good follow thru.) - ADL's/IADL's Detail (Pt doffs/dons underwear, shorts, socks with modified technique. Pt reports her spouse has and will continue to assist w/ compression stockings. Pt demos ability to use the toilet MOD I w/ increased time for pant mgmt and squatted wiping. Pt verbalizes safety and independence w/ I/ADLs including in the kitchen and bathroom.) Therapy Assessment - Therapy Assessment Detail (Pt demos good independence and safety awareness w/ all ADLs and reports her retired spouse will assist as needed. Pt appears ready for home DC when medically ready.) Problem List - Problem List Physical Therapy Problem List: Detail (Decreased L knee AROM and L LE strength.) Occupational Therapy Problem List: Detail (No further IP OT needs identified.) Goals - Goals Physical Therapy Goals: The patient has completed all inpt. PT goals. Occupational Therapy Goals: No further IP OT needs/goals identified. Prognosis - Prognosis Good Plan - Plan Physical Therapy Plan: The pt. is discharged from inpt. PT and is to continue with Home PT. Occupational Therapy Plan: No further IP OT needs/goals identified, DC OT services. Thank you for this referral.
== END 2019-03-16 15:10 | disposition home health service (06) ==
LOC: SUR 12:12 → MEDSURG 16:32 → SUR 03-16 15:10
PROVIDERS: ATTEND Orthopaedic Surgery
DX: M17.12 Unilateral primary osteoarthritis, left knee (principal); Z79.01 Long term (current) use of anticoagulants; I65.29 Occlusion and stenosis of unspecified carotid artery; J45.909 Unspecified asthma, uncomplicated; E66.9 Obesity, unspecified
CPT/HCPCS: 27447; 01402; 64447; 85018; 85014; 80048; 86900; 86901; 86850; 76942; C1776 ×2; J1885; J2405; J3010; J1170; J0690 ×2; J2795; J3370; J3480; J7120